=== PATIENT | male | born 1970 | race Caucasian/White ===

== ENCOUNTER 2018-02-13 18:52 | Emergency (ER) | payer OTHER ==
[2018-02-13 19:10] VITALS: BP 160/83; PULSE 81; RESP 23; TEMP 98.3; O2SAT 97
[2018-02-13] MEDS ORDERED: SODIUM CHLOR 0.9% 1000 ML INJ 1,000 ML IV SCH (19:26)
[2018-02-13] MEDS ORDERED: MORPHINE SULFATE 4 MG/ML INJ IV PUSH ONE ×2 (19:30→20:45)
[2018-02-13] MEDS ORDERED: KETOROLAC TROMETHAMINE 30 MG/ML (IVP) VIAL IVP ONE (19:30)
[2018-02-13] MEDS ORDERED: ONDANSETRON ODT 4 MG TAB PO ONE (19:30)
[2018-02-13] MEDS ORDERED: SODIUM CHLORIDE 0.9% FLUSH 10 ML FLUSH IV FLUSH PRN (19:30)
--- NOTE | 2018-02-13 19:34 | PD ---
HPI Chief Complaint: Abdominal Pain Time Seen by Provider: 19:22 Travel History International Travel<30 days: No Contact w/Intl Traveler<30days: No Traveled to known affect area: No History of Present Illness HPI Patient is a 47-year-old male who presents to the emergency department for abdominal pain. The patient states he developed right flank pain approximately 30 minutes prior to arrival. The onset of pain was abrupt, sharp, radiates from the right mid back to the right flank. He denies any dysuria, frequency, urgency, or hematuria. He does note nausea secondary to the pain. He denies any vomiting. The patient does have a history of previous cholecystectomy, but denies any history of nephrolithiasis. Symptoms are moderate. Patient does state he recently flew on a plane and had some low right mid back pain he attributed to sitting on the plane. [facility] Past Medical History Medical History: Denies Significant Hx Past Surgical History Narrative Surgical Cholecystectomy, tonsillectomy Social History Tobacco Use: No Allergies-Medications (Allergen,Severity, Reaction): Coded Allergies: No Known Allergies (Unverified , 02/13/18) Review of Systems Except as stated in HPI: all other systems reviewed are Neg General / Constitutional: No: Fever Cardiovascular: No: Chest Pain or Discomfort Respiratory: No: Shortness of Breath Gastrointestinal: Positive: Nausea, Abdominal Pain, No: Vomiting, Diarrhea Genitourinary: Positive: Flank Pain, No: Urgency, Frequency, Dysuria, Hematuria Skin: No Rash Physical Exam Narrative GENERAL: Awake, alert, pleasant 47-year-old male who appears his stated age and is in no acute respiratory distress. SKIN: Focused skin assessment warm/dry. No stigmata of shingles. HEAD: Atraumatic. Normocephalic. EYES: Pupils equal and round. No scleral icterus. No injection or drainage. ENT: No nasal bleeding or discharge. Mucous membranes pink and moist. NECK: Trachea midline. No JVD. CARDIOVASCULAR: Regular rate and rhythm. No murmur appreciated. RESPIRATORY: No accessory muscle use. Clear to auscultation. Breath sounds equal bilaterally. GASTROINTESTINAL: Abdomen soft, non-tender, nondistended. Negative Maradiaga's. Negative McBurney's. Negative Rovsing. Back: No CVA tenderness. MUSCULOSKELETAL: No obvious deformities. No clubbing. No cyanosis. No edema. NEUROLOGICAL: Awake and alert. No obvious cranial nerve deficits. Motor grossly within normal limits. Normal speech. PSYCHIATRIC: Appropriate mood and affect; insight and judgment normal. Data Data Last Documented VS Vital Signs Date Time Temp Pulse Resp B/P (MAP) Pulse Ox O2 Delivery O2 Flow Rate FiO2 02/13/18 21:41 77 18 119/57 (77) 96 Room Air 02/13/18 19:10 98.3 Orders Orders Complete Blood Count With Diff (02/13/18:) Comprehensive Metabolic Panel (02/13/18) Lipase (02/13/18:) Lactic Acid (02/13/18:) Urinalysis - C+S If Indicated (02/13/18) Ct Abd/Pel W/O Iv Contrast (02/13/18) Iv Access Insert/Monitor (02/13/18) Ecg Monitoring (02/13/18) Oximetry (02/13/18:) Morphine Inj (Morphine Inj) (02/13/18 19:30) Sodium Chlor 0.9% 1000 Ml Inj (Ns 1000 M (02/13/18 19:26) Sodium Chloride 0.9% Flush (Ns Flush) (02/13/18 19:30) Ketorolac Inj (Toradol Inj) (02/13/18 19:30) Ondansetron Odt (Zofran Odt) (02/13/18 19:30) Morphine Inj (Morphine Inj) (02/13/18 20:45) Ed Discharge Order (02/13/18 21:54) Labs Laboratory Tests Test 02/13/18 19:50 02/13/18 21:09 White Blood Count 12.2 TH/MM3 Red Blood Count 5.36 MIL/MM3 Hemoglobin 16.9 GM/DL Hematocrit 47.6 % Mean Corpuscular Volume 88.8 FL Mean Corpuscular Hemoglobin 31.6 PG Mean Corpuscular Hemoglobin Concent 35.6 % Red Cell Distribution Width 12.4 % Platelet Count 293 TH/MM3 Mean Platelet Volume 8.5 FL Neutrophils (%) (Auto) 64.3 % Lymphocytes (%) (Auto) 27.2 % Monocytes (%) (Auto) 6.7 % Eosinophils (%) (Auto) 1.2 % Basophils (%) (Auto) 0.6 % Neutrophils # (Auto) 7.8 TH/MM3 Lymphocytes # (Auto) 3.3 TH/MM3 Monocytes # (Auto) 0.8 TH/MM3 Eosinophils # (Auto) 0.2 TH/MM3 Basophils # (Auto) 0.1 TH/MM3 CBC Comment DIFF FINAL Differential Comment Blood Urea Nitrogen 15 MG/DL Creatinine 1.15 MG/DL Random Glucose 121 MG/DL Total Protein 7.9 GM/DL Albumin 4.0 GM/DL Calcium Level 8.7 MG/DL Alkaline Phosphatase 86 U/L Aspartate Amino Transf (AST/SGOT) 31 U/L Alanine Aminotransferase (ALT/SGPT) 58 U/L Total Bilirubin 1.0 MG/DL Sodium Level 141 MEQ/L Potassium Level 3.6 MEQ/L Chloride Level 106 MEQ/L Carbon Dioxide Level 24.9 MEQ/L Anion Gap 10 MEQ/L Estimat Glomerular Filtration Rate 68 ML/MIN Lactic Acid Level 2.3 mmol/L Lipase 79 U/L Urine Color YELLOW Urine Turbidity CLEAR Urine pH 5.5 Urine Specific [place] 1.019 Urine Protein TRACE mg/dL Urine Glucose (UA) NEG mg/dL Urine Ketones NEG mg/dL Urine Occult Blood MOD Urine Nitrite NEG Urine Bilirubin NEG Urine Urobilinogen LESS THAN 2.0 MG/DL Urine Leukocyte Esterase NEG Urine RBC 11 /hpf Urine WBC 1 /hpf Urine Squamous Epithelial Cells <1 /hpf Urine Bacteria OCC /hpf Urine Hyaline Casts 2 /lpf Urine Mucus FEW /lpf Microscopic Urinalysis Comment CULT NOT INDICATED MDM Medical Decision Making Medical Screen Exam Complete: Yes Emergency Medical Condition: Yes Medical Record Reviewed: Yes Interpretation(s) Last Impressions Abdomen/Pelvis CT 02/13/181925 Signed Impressions: Service Date/Time: Tuesday, February 13, 2018 19:47 - CONCLUSION: 1. 5 mm proximal right ureteral calcified calculus with mild right-sided hydronephrosis. Temo Tejeda MD Laboratory Tests Test 02/13/18 19:50 02/13/18 21:09 White Blood Count 12.2 TH/MM3 Red Blood Count 5.36 MIL/MM3 Hemoglobin 16.9 GM/DL Hematocrit 47.6 % Mean Corpuscular Volume 88.8 FL Mean Corpuscular Hemoglobin 31.6 PG Mean Corpuscular Hemoglobin Concent 35.6 % Red Cell Distribution Width 12.4 % Platelet Count 293 TH/MM3 Mean Platelet Volume 8.5 FL Neutrophils (%) (Auto) 64.3 % Lymphocytes (%) (Auto) 27.2 % Monocytes (%) (Auto) 6.7 % Eosinophils (%) (Auto) 1.2 % Basophils (%) (Auto) 0.6 % Neutrophils # (Auto) 7.8 TH/MM3 Lymphocytes # (Auto) 3.3 TH/MM3 Monocytes # (Auto) 0.8 TH/MM3 Eosinophils # (Auto) 0.2 TH/MM3 Basophils # (Auto) 0.1 TH/MM3 CBC Comment DIFF FINAL Differential Comment Blood Urea Nitrogen 15 MG/DL Creatinine 1.15 MG/DL Random Glucose 121 MG/DL Total Protein 7.9 GM/DL Albumin 4.0 GM/DL Calcium Level 8.7 MG/DL Alkaline Phosphatase 86 U/L Aspartate Amino Transf (AST/SGOT) 31 U/L Alanine Aminotransferase (ALT/SGPT) 58 U/L Total Bilirubin 1.0 MG/DL Sodium Level 141 MEQ/L Potassium Level 3.6 MEQ/L Chloride Level 106 MEQ/L Carbon Dioxide Level 24.9 MEQ/L Anion Gap 10 MEQ/L Estimat Glomerular Filtration Rate 68 ML/MIN Lactic Acid Level 2.3 mmol/L Lipase 79 U/L Urine Color YELLOW Urine Turbidity CLEAR Urine pH 5.5 Urine Specific [place] 1.019 Urine Protein TRACE mg/dL Urine Glucose (UA) NEG mg/dL Urine Ketones NEG mg/dL Urine Occult Blood MOD Urine Nitrite NEG Urine Bilirubin NEG Urine Urobilinogen LESS THAN 2.0 MG/DL Urine Leukocyte Esterase NEG Urine RBC 11 /hpf Urine WBC 1 /hpf Urine Squamous Epithelial Cells <1 /hpf Urine Bacteria OCC /hpf Urine Hyaline Casts 2 /lpf Urine Mucus FEW /lpf Microscopic Urinalysis Comment CULT NOT INDICATED Differential Diagnosis Differential diagnosis includes nephrolithiasis, atypical appendicitis, pyelonephritis, UTI, colitis, diverticulitis, testicular torsion. Narrative Course IV was established, labs are drawn and sent, and the patient was placed on cardiac telemetry monitoring and continuous pulse oximetry monitoring. The patient was administer morphine, Toradol, Zofran, and IV fluids. UA was sent to lab. Noncontrast CT of the abdomen and pelvis was obtained to evaluate for nephrolithiasis/appendicitis. UA does reveal RBCs. Creatinine is normal. CT is positive for a 5 mm stone in her proximal right ureter. The patient was administered a second dose of morphine, his pain when reevaluated with 0/10. The patient be discharged home in ibuprofen, [place], and Flomax. He is advised to follow-up with a urologist. He will be provided a copy of his CT results and lab results at discharge. Diagnosis Primary Impression: Nephrolithiasis Patient Instructions: General Instructions Additional Instructions: Medications as directed. Follow-up with your primary physician. Return if symptoms worsen or progress. Strain urine. Please provide the patient a strainer at discharge. Please provide the patient a copy of his CT results and lab results at discharge. Med/Other Pt SpecificInfo: Prescription(s) given Scripts Tamsulosin (Flomax) 0.4 Mg Cap 0.4 MG PO HS for Manage Prostate Problems, #7 CAP 0 Refills Prov: Juan Pablo Blank MD 02/13/18 Hydrocodone-Acetaminophen ([place]) 5 Mg-325 Mg Tab 1 TAB PO Q6H Y for PAIN, #12 TAB 0 Refills Prov: Juan Pablo Blank MD 02/13/18 Ibuprofen (Ibuprofen) 600 Mg Tab 600 MG PO Q6H Y for Pain/Inflammation, #20 TAB 0 Refills Prov: Juan Pablo Blank MD 02/13/18 Disposition: 01 DISCHARGE HOME Condition: Stable Juan Pablo Blank MD February 13, 2018 19:34
--- NOTE | 2018-02-13 20:17 | RADRPT ---
EXAM DATE/TIME: 02/13/2018 19:47 [place] COMPARISON: No previous studies available for comparison. INDICATIONS : Right flank pain. ORAL CONTRAST: No oral contrast ingested. RADIATION DOSE: 9.7 CTDIvol (mGy) MEDICAL HISTORY : None SURGICAL HISTORY : None. ENCOUNTER: Initial ACUITY: 1 day PAIN SCALE: 8/10 LOCATION: Right flank TECHNIQUE: Volumetric scanning of the abdomen and pelvis was performed. Using automated exposure control and ad justment of the mA and/or kV according to patient size, radiation dose was kept as low as reasonably achievable to obtain optimal diagnostic quality images. DICOM format image data is available electro nically for review and comparison. FINDINGS: LOWER LUNGS: The visualized lower lungs are clear. LIVER: Homogeneous density without lesion. There is no dilation of the biliary tree. Gallbladder is surgica lly absent SPLEEN: Normal size without lesion. PANCREAS: Within normal limits. KIDNEYS: 5 mm calcified ureteral calculus in the proximal right ureter with resultant mild right-sided hydrone phrosis. No additional radiopaque renal calculi. Left kidney is unremarkable. ADRENAL GLANDS: Within normal limits. VASCULAR: There is no aortic aneurysm. BOWEL/MESENTERY: The stomach, small bowel, and colon demonstrate no acute abnormality. There is no free intraperitone al air or fluid. ABDOMINAL WALL: Within normal limits. RETROPERITONEUM: There is no lymphadenopathy. BLADDER: No wall thickening or mass. REPRODUCTIVE: Within normal limits. INGUINAL: There is no lymphadenopathy or hernia. MUSCULOSKELETAL: Within normal limits for patient age. CONCLUSION: 1. 5 mm proximal right ureteral calcified calculus with mild right-sided hydronephrosis. Temo Tejeda MD on February 13, 2018 at 20:14 Board Certified Radiologist. This report was verified electronically.
[2018-02-13 20:21] LABS: AUTOMATED NEUTROPHIL # 7.8 TH/MM3 (1.8-7.7); BASOPHIL # 0.1 TH/MM3 (0-0.2); BASOPHIL % 0.6 % (0.0-2.0); EOSINOPHIL # 0.2 TH/MM3 (0-0.4); EOSINOPHIL % 1.2 % (0.0-4.0); HEMATOCRIT 47.6 % (39.0-51.0); HEMOGLOBIN 16.9 GM/DL (13.0-17.0); LYMPH % 27.2 % (9.0-44.0); LYMPHOCYTE # 3.3 TH/MM3 (1.0-4.8); MEAN CELL VOLUME 88.8 FL (80.0-100.0); MEAN CORPUSCULAR HEMOGLOBIN 31.6 PG (27.0-34.0); MEAN CORPUSCULAR HGB CONC 35.6 % (32.0-36.0); MEAN PLATELET VOLUME 8.5 FL (7.0-11.0); MONO % 6.7 % (0.0-8.0); MONOCYTE # 0.8 TH/MM3 (0-0.9); NEUT % 64.3 % (16.0-70.0); PLATELET COUNT 293 TH/MM3 (150-450); RED BLOOD COUNT 5.36 MIL/MM3 (4.50-5.90); RED CELL DISTRIBUTION WIDTH 12.4 % (11.6-17.2); WHITE BLOOD COUNT 12.2 TH/MM3 (4.0-11.0)
[2018-02-13] MEDS ORDERED: MORPHINE SULFATE 2 MG/ML SYRINGE IV PUSH ONE (20:30)
[2018-02-13 20:48] LABS: AST (GOT) 31 U/L (15-37); BICARBONATE 24.9 MEQ/L (21.0-32.0); BLOOD UREA NITROGEN 15 MG/DL (7-18); CALCIUM 8.7 MG/DL (8.5-10.1); CHLORIDE 106 MEQ/L (98-107); CREATININE 1.15 MG/DL (0.60-1.30); GLOMERULAR FILTRATION RATE 68 ML/MIN (>89); GLUCOSE,RANDOM 121 MG/DL (74-106); SODIUM (NA) 141 MEQ/L (136-145)
[2018-02-13 20:53] LABS: ALKALINE PHOSPHATASE 86 U/L (45-117); ALT (GPT) 58 U/L (12-78); TOTAL PROTEIN 7.9 GM/DL (6.4-8.2)
[2018-02-13 21:41] VITALS: BP 119/57; PULSE 77; RESP 18; O2SAT 96
[2018-02-13 21:47] LABS: BILIRUBIN, URINE NEG (NEG); BLOOD, URINE MOD (NEG); GLUCOSE,URINE NEG (NEG); HYALINE CAST, URINE 2 /lpf (RARE); KETONE, URINE NEG (NEG); MUCUS URINE FEW /lpf (OCC); NITRITE,URINE NEG (NEG); PH, URINE 5.5 (5.0-8.5); SQUAMOUS EPITHELIAL CELL URINE <1 /hpf (0-5); URINE COLOR YELLOW (YELLW/STRAW); URINE LEUKOCYTE ESTERASE NEG (NEG)
[2018-02-13 21:48] LABS: BACTERIA, URINE OCC /hpf
[2018-02-13] MEDS ORDERED: IBUP-232 PO (21:58)
[2018-02-13] MEDS ORDERED: TAMS5CAP PO (21:58)
[2018-02-13] MEDS ORDERED: NORC5TAB PO (21:58)
== END 2018-02-13 22:13 | disposition home or self-care (01) ==
LOC: NEPC 18:52
DX: N13.2 Hydronephrosis with renal and ureteral calculous obstruction (principal)
CPT/HCPCS: 74176; 80053; 81001; 83605; 83690; 85025; 96361; 96374; 96375; 96376; 99284; J1885; J2270; J7030